=== PATIENT | female | born 1960 | race Caucasian/White ===

== ENCOUNTER → 2017-04-03 | Outpatient (CLI) | payer BC ==
--- NOTE | 2017-04-03 08:44 | CTL ---
EXAMINATION TYPE: CT Low Dose Lung DATE OF EXAM ORDERED: 04/03/2017 HISTORY: 56-year-old female personal history of tobacco use. Lung cancer screening CT DLP: 49.[address] CTDI: 1.4 mGy Automated exposure control for dose reduction was used. SCREENING VISIT: Baseline COMPARISON: None TECHNIQUE: Low dose computed tomography scan was performed through the chest at 1 mm thick sections a nd reconstructed images in the coronal plane at [address] DIAGNOSTIC QUALITY: Satisfactory FINDINGS: The heart is normal size with trace basilar pericardial fluid. Aorta is normal caliber with conventional arch vessel branching anatomy. No thoracic lymphadenopathy. Evaluation of the lungs shows mild scattered emphysematous change and mild diffuse bronchial wall thi ckening. Minimal biapical pleural-parenchymal scarring is present. No consolidation or pleural effusi on. There is a solitary 4 mm pulmonary nodule near the major fissure within the superior segment right lo wer lobe axial image 126. Visualized upper abdomen shows no gross abnormality. Bones: No osseous destructive process. Prominent superior endplate Schmorl's node of T6 superior endp late. IMPRESSION: 1. LungRADS 2 - benign appearance or behavior; solitary 4 mm right midlung pulmonary nodule at [place]. 2. COPD with mild emphysema. RECOMMENDATION: 1. Continue annual screening with low-dose CT. 2. Smoking cessation.
== END | disposition home or self-care (01) ==
LOC: RADCTMAIN 07:37
PROVIDERS: ATTEND Family Medicine
DX: Z12.2 Encounter for screening for malignant neoplasm of respiratory organs (principal); Z87.891 Personal history of nicotine dependence; R91.1 Solitary pulmonary nodule; J43.9 Emphysema, unspecified

== ENCOUNTER → 2017-05-15 | Outpatient (CLI) | payer BC ==
--- NOTE | 2017-05-15 11:23 | MM ---
Reason for exam: screening (asymptomatic). Last mammogram was performed 2 years and 1 month ago. History: Patient is postmenopausal and has history of endometrial cancer at age 22. Physical Findings: Nurse did not find any significant physical abnormalities on exam. MG Screening Mammo w CAD Bilateral CC and MLO view(s) were taken. Prior study comparison: April 23, 2015, bilateral MG screening mammo w CAD. The breast tissue is heterogeneously dense. This may lower the sensitivity of mammography. Finding: There are typically benign round calcifications in both breasts. There is no discrete abnormality. ASSESSMENT: Benign, BI-RAD 2 RECOMMENDATION: Routine screening mammogram of both breasts in 1 year.
== END | disposition home or self-care (01) ==
LOC: RADMAMWWP 07:15
PROVIDERS: ATTEND Family Medicine
DX: Z12.31 Encounter for screening mammogram for malignant neoplasm of breast (principal)

== ENCOUNTER → 2019-03-27 | Outpatient (CLI) | payer BC ==
--- NOTE | 2019-03-31 09:52 | MM ---
Reason for exam: screening (asymptomatic). Last mammogram was performed 1 year and 10 months ago. History: Patient is postmenopausal and has history of endometrial cancer at age 22. Physical Findings: A clinical breast exam by your physician is recommended on an annual basis and results should be correlated with mammographic findings. MG Screening Mammo w CAD Bilateral CC and MLO view(s) were taken. Prior study comparison: May 15, 2017, bilateral MG screening mammo w CAD. April 23, 2015, bilateral MG screening mammo w CAD. The breast tissue is heterogeneously dense. This may lower the sensitivity of mammography. Benign appearing bilateral calcifications. No suspicious abnormality in the right. Left upper inner quadrant focal asymmetry. ASSESSMENT: Incomplete: need additional imaging evaluation, BI-RAD 0 RECOMMENDATION: Special view mammogram of the left breast. If lesion persists on supplemental views, image directed ultrasound is recommended. [facility] will attempt to contact patient to return for supplemental views and ultrasound if indicated.
== END | disposition home or self-care (01) ==
LOC: RADMAMWWP 16:10
PROVIDERS: ATTEND Family Medicine
DX: Z12.31 Encounter for screening mammogram for malignant neoplasm of breast (principal)
CPT/HCPCS: 77067

== ENCOUNTER → 2019-04-09 | Outpatient (CLI) | payer BC ==
--- NOTE | 2019-04-09 09:26 | MM ---
Reason for exam: additional evaluation requested from abnormal screening. Last mammogram was performed less than 1 month ago. History: Patient is postmenopausal and has history of endometrial cancer at age 22. Physical Findings: Nurse did not find any significant physical abnormalities on exam. MG Work Up Mamm w CAD LT Spot compression CC, spot compression MLO, and ML view(s) were taken of the left breast. Prior study comparison: March 27, 2019, bilateral MG screening mammo w CAD. May 15, 2017, bilateral MG screening mammo w CAD. The breast tissue is heterogeneously dense. This may lower the sensitivity of mammography. There is no discrete abnormality left upper outer quadrant. These results were verbally communicated with the patient and result sheet given to the patient on 04/09/19. ASSESSMENT: Probably benign, BI-RAD 3 RECOMMENDATION: Follow-up diagnostic mammogram of the left breast in 6 months.
== END | disposition home or self-care (01) ==
LOC: RADMAMWWP 08:50
PROVIDERS: ATTEND Family Medicine
DX: R92.8 Other abnormal and inconclusive findings on diagnostic imaging of breast (principal)
CPT/HCPCS: 77065

== ENCOUNTER 2020-11-28 18:41 | Emergency (ER) | payer BC ==
[2020-11-28 18:48] VITALS: BP 154/89; PULSE 78; RESP 20; TEMP 97.7
[2020-11-28 19:28] LABS: Appearance,Urine Clear (Clear); Bilirubin,Urine Negative (Negative); Blood,Urine Negative (Negative); Color,Urine Colorless; Glucose,Urine (UA) Negative (Negative); Ketones,Urine Negative (Negative); Leukocyte Esterase,Urine Negative (Negative); Nitrite,Urine Negative (Negative); Protein,Urine Negative (Negative); Urobilinogen,Urine <2.0 mg/dL (<2.0)
--- NOTE | 2020-11-28 19:30 | ED ---
General Adult HPI - General Chief complaint: Abdominal Pain Stated complaint: L lower abd pain Time Seen by Provider: 11/28/20 19:27 Source: patient Mode of arrival: ambulatory Limitations: no limitations - History of Present Illness Initial comments: Patient presents the ED complaining of having constant and worsening left lower quadrant abdominal pain since this morning. Patient states that her last bowel movement was yesterday, and she states that it was normal at that time. Patient denies trauma or injury, radiation of her pain, fever or chills, headache, focal neuro deficit, chest pain, dyspnea, cough or cold symptoms, dizziness, upper abdominal pain, back or flank pain, nausea or vomiting, diarrhea or constipation, bloody or melanotic stool, dysuria/hematuria/urinary frequency/urinary symptoms, or any other symptoms or complaints. Patient states that she drove herself here and plans to drive herself home if discharged today. - Related Data Home Medications Medication Instructions Recorded Confirmed Acetaminophen [Tylenol] 500 mg PO BID 04/13/15 04/16/15 [id number] 1 each PO HS 04/13/15 04/13/15 [Excedrin] Betamethasone Valeate Cream 1 applicate TOPICAL BID 04/13/15 04/16/15 Erythromycin Ophth Oint [Romycin 1 applic RIGHT EYE BID 04/13/15 04/16/15 Ophth Oint] Previous Rx's Medication Instructions Recorded Sennosides-Docusate Sodium 1 tab PO BID PRN #10 tablet 11/28/20 [Senokot-S] Allergies Allergy/AdvReac Type Severity Reaction Status Date / Time No Known Allergies Allergy Verified 11/28/20 18:49 Review of Systems ROS Statement: Those systems with pertinent positive or pertinent negative responses have been documented in the HPI. ROS Other: All systems not noted in ROS Statement are negative. Past Medical History Past Medical History: Osteoarthritis (OA), Thyroid Disorder Additional Past Medical History / Comment(s): migraines History of Any Multi-Drug Resistant Organisms: None Reported Past Surgical History: Hysterectomy, Orthopedic Surgery Additional Past Surgical History / Comment(s): lt arm Past Psychological History: No Psychological Hx Reported Smoking Status: Current every day smoker Past Alcohol Use History: None Reported Past Drug Use History: None Reported General Exam Limitations: no limitations General appearance: alert, in no apparent distress Head exam: Present: atraumatic, normocephalic Eye exam: Present: normal appearance, EOMI ENT exam: Present: mucous membranes moist Neck exam: Present: other (Trachea is in midline) Respiratory exam: Present: normal lung sounds bilaterally. Absent: respiratory distress, wheezes, rales, rhonchi, stridor Cardiovascular Exam: Present: regular rate, normal rhythm, normal heart sounds, other (Normal radial pulses bilaterally) GI/Abdominal exam: Present: soft, normal bowel sounds, other (Moderate left lower quadrant abdominal tenderness). Absent: distended, guarding, rebound Extremities exam: Absent: pedal edema Back exam: Absent: CVA tenderness (R), CVA tenderness (L) Neurological exam: Present: alert, oriented X3. Absent: motor sensory deficit Psychiatric exam: Present: normal affect, normal mood Skin exam: Present: warm, dry, intact, normal color Course Vital Signs 11/28/20 18:44 Temperature 97.7 F Pulse Rate 78 Respiratory 20 Rate Blood Pressure 154/89 O2 Sat by Pulse 100 Oximetry - Reevaluation(s) Reevaluation #1: 11/28/20 20:58 Patient denies development of any new symptoms while in the ED. Patient's ab domen remains soft and without any surgical signs on examination. Patient is aware of her test results, and she feels comfortable being discharged home from the ED at this time. Patient was counseled about abdominal pain and constipation, and she was clearly explained return and follow-up instructions. She was instructed to have a low threshold for return to the ED should she develop new or worsening symptoms. She was also instructed to follow up closely with her primary care provider. Patient feels comfortable with this plan. Medical Decision Making - Medical Decision Making Patient's labs are fairly unremarkable. Patient is afebrile and without leukocytosis. Patient has a nonsurgical abdominal exam at this time. Patient's CT abdomen and pelvis is negative except for moderate stool burden. I suspect that the patient's pain may be secondary to constipation. Will provide the patient with a prescription for stool softener/laxatives and discharge patient home at this time. Patient feels comfortable with this plan. - Lab Data Result diagrams: 11/28/20 19:55 11/28/20 19:55 Lab Results 11/28/20 11/28/20 11/28/20 Range/Units 19:20 19:55 19:55 WBC 5.6 (3.8-10.6) k/uL RBC 4.42 (3.80-5.40) m/uL Hgb 14.3 (11.4-16.0) gm/dL Hct 40.7 (34.0-46.0) % MCV 92.2 (80.0-100.0) fL MCH 32.4 (25.0-35.0) pg MCHC 35.2 (31.0-37.0) g/dL RDW 12.7 (11.5-15.5) % Plt Count 220 (150-450) k/uL MPV 8.3 Neutrophils % 55 % Lymphocytes % 35 % Monocytes % 7 % Eosinophils % 1 % Basophils % 1 % Neutrophils # 3.1 (1.3-7.7) k/uL Lymphocytes # 1.9 (1.0-4.8) k/uL Monocytes # 0.4 (0-1.0) k/uL Eosinophils # 0.1 (0-0.7) k/uL Basophils # 0.0 (0-0.2) k/uL Sodium 140 (137-145) mmol/L Potassium 4.3 (3.5-5.1) mmol/L Chloride 110 H (98-107) mmol/L Carbon Dioxide 23 (22-30) mmol/L Anion Gap 7 mmol/L BUN 11 (7-17) mg/dL Creatinine 0.59 (0.52-1.04) mg/dL Est GFR (CKD-EPI)AfAm >90 (>60 ml/min/1.73 sqM) Est GFR (CKD-EPI)NonAf >90 (>60 ml/min/1.73 sqM) Glucose 94 (74-99) mg/dL Calcium 9.4 (8.4-10.2) mg/dL Total Bilirubin 0.3 (0.2-1.3) mg/dL AST 22 (14-36) U/L ALT 14 (4-34) U/L Alkaline Phosphatase 71 (38-126) U/L Total Protein 6.8 (6.3-8.2) g/dL Albumin 4.0 (3.5-5.0) g/dL Amylase 54 (30-110) U/L Lipase 82 (23-300) U/L Urine Color Colorless Urine Appearance Clear (Clear) Urine pH 7.0 (5.0-8.0) Ur Specific [place] 1.000 L (1.001-1.035) Urine Protein Negative (Negative) Urine Glucose (UA) Negative (Negative) Urine Ketones Negative (Negative) Urine Blood Negative (Negative) Urine Nitrite Negative (Negative) Urine Bilirubin Negative (Negative) Urine Urobilinogen <2.0 (<2.0) mg/dL Ur Leukocyte Esterase Negative (Negative) - Radiology Data Radiology results: report reviewed (CT abdomen/pelvis with IV contrast: No acute abnormality, moderate stool burden) Disposition Clinical Impression: Abdominal pain, Constipation Disposition: HOME SELF-CARE Condition: Stable Instructions (If sedation given, give patient instructions): Constipation (ED), Abdominal Pain (ED) Additional Instructions: Return to the ER immediately should you develop new or worsening pain, a fever, vomiting, feeling dizzy or faint, shortness of breath, or new or worsening symptoms. Follow up closely with your primary care provider. Prescriptions: Sennosides-Docusate Sodium [Senokot-S] 1 tab PO BID PRN #10 tablet PRN Reason: Constipation Is patient prescribed a controlled substance at d/c from ED?: No Referrals: Yudi Blackmon MD [Primary Care Provider] - 1-2 days Time of Disposition: 21:04
[2020-11-28] MEDS ORDERED: SODIUM CHLORIDE 0.9% 1,000 ML IV STA (19:35)
[2020-11-28 20:03] LABS: Basophils % (A) 1 %; Eosinophils # (A) 0.1 k/uL (0-0.7); Eosinophils % (A) 1 %; HCT 40.7 % (34.0-46.0); HGB 14.3 gm/dL (11.4-16.0); Lymphocytes # (A) 1.9 k/uL (1.0-4.8); Lymphocytes % (A) 35 %; MCH 32.4 pg (25.0-35.0); MCHC 35.2 g/dL (31.0-37.0); MCV 92.2 fL (80.0-100.0); Mean Platelet Volume 8.3; Monocytes # (A) 0.4 k/uL (0-1.0); Monocytes % (A) 7 %; Neutrophils # (A) 3.1 k/uL (1.3-7.7); Neutrophils % (A) 55 %; Platelet Count 220 k/uL (150-450); RBC 4.42 m/uL (3.80-5.40); RDW 12.7 % (11.5-15.5); WBC 5.6 k/uL (3.8-10.6)
[2020-11-28 20:14] LABS: ALT 14 U/L (4-34); AST 22 U/L (14-36); African American GFR (CKD) >90 (>60 ml/min/1.73 sqM); Alkaline Phosphatase 71 U/L (38-126); Amylase 54 U/L (30-110); Anion Gap 7 mmol/L; Blood Urea Nitrogen 11 mg/dL (7-17); Calcium 9.4 mg/dL (8.4-10.2); Carbon Dioxide 23 mmol/L (22-30); Chloride 110 mmol/L (98-107); Glucose 94 mg/dL (74-99); Lipase 82 U/L (23-300); Non-African American GFR(CKD) >90 (>60 ml/min/1.73 sqM); Potassium 4.3 mmol/L (3.5-5.1); Sodium 140 mmol/L (137-145); Total Bilirubin 0.3 mg/dL (0.2-1.3); Total Protein 6.8 g/dL (6.3-8.2)
--- NOTE | 2020-11-28 20:45 | CT ---
EXAMINATION TYPE: CT abdomen pelvis w con DATE OF EXAM: 11/28/2020 COMPARISON: None available. HISTORY: Left lower quadrant abdominal pain. CT DLP: 709.5 mGycm Automated exposure control for dose reduction was used. TECHNIQUE: Helical acquisition of images was performed from the lung bases through the pelvis. CONTRAST: Performed without Oral Contrast and with IV Contrast, patient injected with 100ml mL of Isovue 300. FINDINGS: LUNG BASES: No significant abnormality is appreciated. LIVER/GB: No significant abnormality is appreciated. PANCREAS: No significant abnormality is seen. SPLEEN: No significant abnormality is seen. ADRENALS: No significant abnormality is seen. KIDNEYS: No significant abnormality is seen. FREE AIR: No free air is visualized. RETROPERITONEAL ADENOPATHY: None visualized REPRODUCTIVE ORGANS: No significant abnormality is seen URINARY BLADDER: No significant abnormality is seen. PELVIC ADENOPATHY: None visualized. OSSEOUS STRUCTURES: No significant abnormality is seen. BOWEL: Otherwise no significant abnormality is seen. Moderate colonic stool burden. OTHER: Moderate atherosclerotic disease. IMPRESSION: NO ACUTE ABNORMALITY. MODERATE STOOL BURDEN.
== END 2020-11-28 21:12 | disposition home or self-care (01) ==
LOC: EC 18:41
DX: K59.00 Constipation, unspecified (principal); F17.200 Nicotine dependence, unspecified, uncomplicated; M19.90 Unspecified osteoarthritis, unspecified site; Z79.82 Long term (current) use of aspirin
CPT/HCPCS: 99284; 36415; 80053; 82150; 83690; 85025; 81003; 74177; Q9967

== ENCOUNTER → 2022-01-04 | Outpatient (CLI) | payer BC ==
[2022-01-04 14:48] LABS: HCT 40.9 % (37.2-46.3); HGB 13.4 g/dL (12.0-15.0); MCH 30.9 pg (27.0-32.0); MCHC 32.8 g/dL (32.0-37.0); MCV 94.2 fL (80.0-97.0); Mean Platelet Volume 10.6 fL (9.5-12.2); NRBC Per 100 WBC 0 /100 WBCS (0.0-0.0); Platelet Count 239 X 10*3/uL (140-440); RBC 4.34 X 10*6/uL (4.10-5.20); RDW 13.1 % (11.5-14.5); WBC 7.28 X 10*3/uL (4.50-10.00)
[2022-01-04 15:35] LABS: ALT 18 U/L (8-44); AST 16 U/L (13-35); African American GFR (CKD) 99.3 (60.0-200.0); Albumin 4.4 g/dL (3.8-4.9); Albumin/Globulin Ratio 2.01 (1.60-3.17); Alkaline Phosphatase 61 U/L (41-126); BUN/Creat Ratio 16.44 Ratio (12.00-20.00); Blood Urea Nitrogen 12.3 mg/dL (9.0-27.0); Calcium 9.6 mg/dL (8.7-10.3); Carbon Dioxide 25.6 mmol/L (20.0-27.5); Chloride 102 mmol/L (96-109); Chol/HDL Ratio 2.65 Ratio; Globulin 2.2 g/dL (1.6-3.3); Glucose 92 mg/dL (70-110); LDL Cholesterol,Calculated 104.8 mg/dL (0.0-131.0); Non-African American GFR(CKD) 85.7 (60.0-200.0); Potassium 4.8 mmol/L (3.5-5.5); Sodium 139 mmol/L (135-145); Total Protein 6.5 g/dL (6.2-8.2)
== END | disposition home or self-care (01) ==
LOC: LABWHC1 08:17
PROVIDERS: ATTEND Physician Assistant Medical
DX: E03.9 Hypothyroidism, unspecified (principal); Z79.1 Long term (current) use of non-steroidal anti-inflammatories (NSAID)
CPT/HCPCS: 36415; 80053; 80061; 84439; 84443; 84481; 85027

== ENCOUNTER → 2022-01-19 | Outpatient (CLI) | payer BC ==
--- NOTE | 2022-01-19 10:54 | MM ---
Reason for Exam: Additional evaluation requested from prior study. Last mammogram was performed 2 year(s) and 10 month(s) ago. Patient History: Menarche at age 11. First Full-Term at age 18. Hysterectomy at age 22. Postmenopausal. Endometrial cancer, age 22. Risk Values: Marissa 5 year model risk: 1.1%. NCI Lifetime model risk: 5.0%. Prior Study Comparison: 05/15/2017 Bilateral Screening Mammogram, [facility]. 03/27/2019 Bilateral Screening Mammogram, [facility]. 04/09/2019 Left Diagnostic Mammogram, [facility]. Tissue Density: The breast tissue is heterogeneously dense. This may lower the sensitivity of mammography. Findings: Analyzed By CAD. Occasional scattered calcifications throughout both breasts are redemonstrated. There is a 5 mm focal asymmetric density middle depth outer aspect right breast 4 cm distance from nipple on CC view not clearly seen on MLO view that warrants further workup as is more prominent from 2017 study. Overall Assessment: Incomplete: need additional imaging evaluation, BI-RAD 0 Management: Diagnostic Breast Ultrasound of the right breast. Targeted ultrasound right breast. Electronically signed and approved by: Jose Alberto Ramirez M.D.
--- NOTE | 2022-01-19 11:36 | USB ---
Reason for Exam: Clinical finding. Patient History: Menarche at age 11. First Full-Term at age 18. Hysterectomy at age 22. Postmenopausal. Endometrial cancer, age 22. Risk Values: Marissa 5 year model risk: 1.1%. NCI Lifetime model risk: 5.0%. Technique: Method: Targeted. Patient Position: Supine. right outer 1/ . Prior Study Comparison: 05/15/2017 Bilateral Screening Mammogram, [facility]. 03/27/2019 Bilateral Screening Mammogram, [facility]. 04/09/2019 Left Diagnostic Mammogram, [facility]. Findings: The lateral section of the breast of the right breast was scanned. There is overall fairly anechoic 6 x 5 x 2 mm lesion 9:00 position 4 cm distance from nipple felt to reflect thin-walled cyst felt to correspond to mammogram abnormality. Overall Assessment: Probably benign, BI-RAD 3 Management: Diagnostic Mammogram of the right breast in 6 months. A clinical breast exam by your physician is recommended on an annual basis and results should be correlated with mammographic findings. Electronically signed and approved by: Jose Alberto Ramirez M.D.
== END | disposition home or self-care (01) ==
LOC: RADMAMWWP 10:14
PROVIDERS: ATTEND Family Medicine
DX: R92.8 Other abnormal and inconclusive findings on diagnostic imaging of breast (principal); Z78.0 Asymptomatic menopausal state
CPT/HCPCS: 77066

== ENCOUNTER → 2023-07-04 | Outpatient (CLI) | payer BC ==
--- NOTE | 2023-07-04 08:23 | MM ---
Reason for Exam: Additional evaluation requested from prior study. Last mammogram was performed 1 year(s) and 5 month(s) ago. Patient History: Menarche at age 11. First Full-Term at age 18. Hysterectomy at age 22. Postmenopausal. Endometrial cancer, age 22. Risk Values: Marissa 5 year model risk: 1.1%. NCI Lifetime model risk: 4.9%. Prior Study Comparison: 05/15/2017 Bilateral Screening Mammogram, [facility]. 03/27/2019 Bilateral Screening Mammogram, [facility]. 04/09/2019 Left Diagnostic Mammogram, [facility]. 01/19/2022 Bilateral MG diagnostic mammo w CAD [facility], [facility]. Tissue Density: The breast tissue is heterogeneously dense. This may lower the sensitivity of mammography. Findings: Analyzed By CAD. Pattern appears symmetrical and stable probably benign spherical calcifications are present. No significant interval change is evident. No suspicious groups of microcalcifications, spiculated or lobular masses, architectural distortion or other secondary signs of malignancy are mammographically apparent. Overall Assessment: Benign, BI-RAD 2 Management: Screening Mammogram of both breasts in 1 year. A negative mammogram report should not preclude additional follow up of suspicious palpable abnormalities. Patient should continue monthly self breast exam. A clinical breast exam by your physician is recommended on an annual basis and results should be correlated with mammographic findings. Electronically signed and approved by: Shyam Green D.O. Radiologis
== END | disposition home or self-care (01) ==
LOC: RADMAMWWP 07:34
PROVIDERS: ATTEND Family Medicine
DX: R92.333 Mammographic heterogeneous density, bilateral breasts (principal); Z78.0 Asymptomatic menopausal state
CPT/HCPCS: 77062; 77066

== ENCOUNTER → 2023-07-23 | Outpatient (CLI) | payer BC ==
--- NOTE | 2023-07-23 09:24 | CTL ---
EXAMINATION TYPE: CT Low Dose Lung DATE OF EXAM ORDERED: 07/23/2023 HISTORY: Nicotine dependence. Lung cancer screening CT DLP: 65.[address] CTDI: 1.9 mGy Automated exposure control for dose reduction was used. SCREENING VISIT: Subsequent COMPARISON: 04/03/2017 TECHNIQUE: Low dose computed tomography scan was performed through the chest at 1 mm thick sections a nd reconstructed images in the coronal plane at [address] DIAGNOSTIC QUALITY: Satisfactory FINDINGS: LUNG NODULES: None. Stable lung apical scarring is evident. Some minimal groundglass opacity may be a t the posterior lateral right lung base. LUNGS: COPD: Severity: None Fibrosis: Severity: None Lymph nodes: None Other findings: None RIGHT PLEURAL SPACE: Effusion: None Calcification: None Thickening: None Pneumothorax: None LEFT PLEURAL SPACE: Effusion: None Calcification: None Thickening: None Pneumothorax: None HEART: Heart Size: Normal Coronary calcification: None Pericardial effusion: None OTHER FINDINGS: Upper abdomen: Bony thorax: No Supraclavicular region: Normal Other: Ascending thoracic aorta at the level the main pulmonary artery measures 3.1 cm. The main pul monary artery at the bifurcation measures 2.3 cm. IMPRESSION: 1. Benign appearance. FOLLOW UP CT CHEST RECOMMENDATION: Follow-up low-dose CT chest [address] LUNG RAD: Lung-Rad 2 Benign Appearance or Behavior
== END | disposition home or self-care (01) ==
LOC: RADCTMAIN 07:50
PROVIDERS: ATTEND Family Medicine
DX: Z12.2 Encounter for screening for malignant neoplasm of respiratory organs (principal); F17.210 Nicotine dependence, cigarettes, uncomplicated
CPT/HCPCS: 71271

== ENCOUNTER → 2024-05-09 | Outpatient (CLI) | payer BC ==
--- NOTE | 2024-05-30 08:33 | MR ---
EXAMINATION TYPE: MR foot LT without contrast DATE OF EXAM: 05/09/2024 COMPARISON: Pain, injury HISTORY: Left foot pain, swelling, redness midfoot into toes. Trauma to foot x 4 weeks Standard multiplanar, multisequence MRI departmental protocol Multiplanar, multisequence images of the left foot were acquired without contrast. FINDINGS: Acute mildly displaced comminuted fracture at the base of the first metatarsal with intra-articular e xtension and marked surrounding bone marrow edema. Acute nondisplaced fracture along the dorsal and distal aspect of the medial cuneiform with mild surr ounding bone marrow edema. Acute minimally displaced fracture at the base of the second proximal phalanx with surrounding bone m arrow edema. No additional acute fractures or malalignment. Mild bone marrow edema along the talar neck without ev idence of a discrete fracture line. Lisfranc ligament is intact. Visualized tendons and ligaments are intact. No sizable joint effusion. Mild diffuse soft tissue swelling/intramuscular edema about the first through third digits. IMPRESSION: Acute fractures at the base of the first metatarsal, medial cuneiform and second proximal phalanx. Mi ld osseous contusion at the talar neck without a discrete fracture line. [facility], Workstation: [id number], 05/29/2024 8:36 AM
== END | disposition home or self-care (01) ==
LOC: RADMRIMAIN 09:10
PROVIDERS: ATTEND Family Medicine
DX: S92.512A Displaced fracture of proximal phalanx of left lesser toe(s), initial encounter for closed fracture (principal); S90.32XA Contusion of left foot, initial encounter; M79.672 Pain in left foot; X58.XXXA Exposure to other specified factors, initial encounter